=== PATIENT | male | born 1990 | race Caucasian/White ===

== ENCOUNTER 2024-03-24 12:30 | Emergency (ER) | payer MEDICAID ==
[~2024-03-24] VITALS: Ht 177.8 cm; Wt 81.6 kg
[2024-03-24 13:24] VITALS: BP 109/65; TEMP 98.2
[2024-03-24] MEDS ORDERED: KETOROLAC TROMETHAMINE INJ 30 MG/ML VIAL ONE (13:33)
[2024-03-24] MEDS ORDERED: LIDOCAINE 5% (PATCH) 1 EA PATCH TP ONE (13:33)
[2024-03-24] MEDS ORDERED: ACETAMINOPHEN ES 500 MG TABLET ONE (13:34)
[2024-03-24] MEDS ORDERED: HYDR-4303 PO (13:39)
[2024-03-24] MEDS ORDERED: ACET-2605 PO (13:39)
[2024-03-24] MEDS: ACETAMINOPHEN ES 500 MG TABLET PO ONE (13:40)
[2024-03-24] MEDS: KETOROLAC TROMETHAMINE INJ 30 MG/ML VIAL IM ONE (13:40)
[2024-03-24] MEDS: LIDOCAINE 5% (PATCH) 1 EA PATCH TP ONE (13:40)
[2024-03-24 13:52] VITALS: O2SAT 99
== END 2024-03-24 13:53 | disposition home or self-care (01) ==
LOC: ER 12:37
DX: G89.29 Other chronic pain (principal); M54.50 Low back pain, unspecified
CPT/HCPCS: 99283; 96372; J1885